=== PATIENT | female | born 1960 | race African-American/Black ===

== ENCOUNTER 2018-12-10 00:20 | Emergency (ER) | payer OTHER ==
--- NOTE | 2018-12-10 00:39 | PDOC ---
History of Present Illness - General Chief Complaint: Weakness Stated Complaint: LEFT HAND NUMBNESS Time Seen by Provider: 12/10/18 00:38 Past History - Past Medical History Allergies/Adverse Reactions: Allergies Allergy/AdvReac Type Severity Reaction Status Date / Time No Known Allergies Allergy Verified 12/10/18 00:41 Home Medications: Ambulatory Orders Aspirin Coated [Ecotrin -] 81 mg PO DAILY #90 tablet.ec 02/29/16 Anemia: No Asthma: No Cancer: No Cardiac Disorders: No CVA: Yes (TIA) COPD: No CHF: No Dementia: No Diabetes: No GI Disorders: No Disorders: No HTN: No Hypercholesterolemia: Yes Liver Disease: No Seizures: No Thyroid Disease: Yes (HyperThyroid) - Surgical History Abdominal Surgery: No Appendectomy: No Cardiac Surgery: No Cholecystectomy: No Lung Surgery: No Neurologic Surgery: No Orthopedic Surgery: Yes (ankle) - Immunization History Td Vaccination: No - Psycho Social/Smoking Cessation Hx Smoking Status: No Smoking History: Never smoked Number of Cigarettes Smoked Daily: 0 Hx Alcohol Use: Yes Drug/Substance Use Hx: No Substance Use Type: None Hx Substance Use Treatment: No ED Treatment Course - LABORATORY CBC & Chemistry Diagram: 12/10/18 01:10 12/10/18 01:10 Discharge - Discharge Information Problems reviewed: Yes Clinical Impression/Diagnosis: Arm paresthesia, left Condition: Good Disposition: HOME - Admission No - Follow up/Referral Referrals: [facility] [Provider Group] - Patient Discharge Instructions Patient Printed Discharge Instructions: DI for Numbness/tingling Additional Instructions: You were seen in the ER today for tingling in your arm. The results of your labs and imaging today showed mild electrolyte abnormalities that need to be followed-up with your doctor. Please follow-up with your primary care doctor within 1-2 days to discuss your visit and make sure your symptoms have improved. Please return to the ER if you have any worsening pain, development of fevers or chills, loss of consciousness, inability to tolerate food or fluids , or any other concerns. - Post Discharge Activity
--- NOTE | 2018-12-10 00:40 | PDOC ---
Attending Attestation - Resident Resident Name: TashaEmy - ED Attending Attestation I have performed the following: I have examined & evaluated the patient, The case was reviewed & discussed with the resident, I agree w/resident's findings & plan - HPI HPI: 12/11/18 22:54 Pt comes with left hard tingling and numbness. Pt states that she has no other weakness or pain. - Physicial Exam PE: 12/11/18 22:55 Agree with resident exam. Pt has normal rest of body; she has no weakness of left arm at this time. But she feels pins and needles. We will check CT c spine and treat with NSAIDS. - Medical Decision Making 12/11/18 22:56 maging studies normal; pt reassured and she is feeling better; she will follow with her PMD. 12/11/18 22:56 All labs normal. 12/11/18 22:57 Pt stable for d/c home; she can follow with her PMD.
[2018-12-10 00:42] VITALS: TEMP 98.2; BMI 23.6
[2018-12-10] MEDS ORDERED: KETOROLAC TROMETHAMINE 30 MG/1 ML VIAL IVPUSH ONE (01:11)
[2018-12-10] MEDS ORDERED: METHOCARBAMOL 500 MG TABLET PO ONE (01:12)
[2018-12-10 01:26] LABS: BASO % 0.8 % (0-2.0); EOS % 3.7 % (0-4.5); HEMATOCRIT 35.4 % (32.4-45.2); HEMOGLOBIN 11.4 GM/dL (10.7-15.3); LYMPH % 51.3 % (8-40); MCH 28.4 pg (25.7-33.7); MCHC 32.2 g/dl (32.0-36.0); MEAN CELL VOLUME 88.3 fl (80-96); MEAN PLT VOLUME 9.1 fl (7.5-11.1); MONO % 9.1 % (3.8-10.2); NEUT % 35.1 % (42.8-82.8); PLATELET COUNT 227 K/MM3 (134-434); RBC 4.01 M/mm3 (3.60-5.2); RDW 13.6 % (11.6-15.6); WHITE BLOOD COUNT 3.9 K/mm3 (4.0-10.0)
[2018-12-10] MEDS ORDERED: KETOROLAC TROMETHAMINE 15 MG/ML VIAL IM ONE (01:33)
[2018-12-10] MEDS ORDERED: KETOROLAC TROMETHAMINE 15 MG/ML VIAL ONE (01:36)
[2018-12-10] MEDS ORDERED: METHOCARBAMOL 500 MG TABLET ONE (01:36)
[2018-12-10] MEDS ORDERED: IBUPROFEN 600 MG TABLET (FP) PO ONE ×2 (01:44→02:00)
[2018-12-10 01:52] LABS: ALBUMIN 3.5 g/dl (3.4-5.0); BILIRUBIN,TOTAL 0.5 mg/dL (0.2-1); BLOOD UREA NITROGEN 15.4 mg/dL (7-18); CALCIUM 8.5 mg/dL (8.5-10.1); CREATININE 0.7 mg/dL (0.55-1.3); POTASSIUM 3.8 mmol/L (3.5-5.1); TOT PROT 6.8 g/dl (6.4-8.2)
[2018-12-10 02:00] LABS: MAGNESIUM 1.6 mg/dL (1.8-2.4)
[2018-12-10 02:47] VITALS: BP 120/83; PULSE 81
== END 2018-12-10 02:30 | disposition home or self-care (01) ==
LOC: JER 00:20
DX: R20.2 Paresthesia of skin (principal); E05.90 Thyrotoxicosis, unspecified without thyrotoxic crisis or storm; E78.00 Pure hypercholesterolemia, unspecified; Z86.73 Personal history of transient ischemic attack (TIA), and cerebral infarction without residual deficits
CPT/HCPCS: 36415; 72050-TC-FY; 80053; 80061; 83721; 83735; 84443; 85025; 99282-25

== ENCOUNTER 2019-10-02 21:57 | Observation (INO) | payer OTHER ==
[2019-10-02 22:06] VITALS: BMI 22.8
[2019-10-02] MEDS ORDERED: ASPIRIN 81 MG CHEWABLE TABLETS PO ONE (22:09)
--- NOTE | 2019-10-02 22:09 | PDOC ---
Rapid Medical Evaluation Chief Complaint: Chest Pain Time Seen by Provider: 10/02/19 22:03 Medical Evaluation: Allergies Allergy/AdvReac Type Severity Reaction Status Date / Time No Known Allergies Allergy Verified 12/10/18 00:41 Vital Signs Temp Pulse Resp BP Pulse Ox 98.7 F 74 19 146/86 100 10/02/19 21:59 10/02/19 21:59 10/02/19 21:59 10/02/19 21:59 10/02/19 21:59 10/02/19 22:07 I performed a brief in-person evaluation of this patient. CC: left-sided chest pain starting approximately 45 minutes ago. Patient reports it is a dull pressure which waxes and wanes. Lungs clear to auscultation bilaterally. RRR. No murmur, rub or gallop noted. PE: Orders: Cardiac work-up Patient will proceed to the ED for further evaluation. Discharge Disposition - Diagnosis Chest pain - Referrals - Patient Instructions - Post Discharge Activity
--- NOTE | 2019-10-02 22:18 | PDOC ---
History of Present Illness - General Chief Complaint: Chest Pain Stated Complaint: CHEST PAIN Time Seen by Provider: 10/02/19 22:03 - History of Present Illness Initial Comments: 59 years old female with past medical history of Hypothyroidism, hyperlipidemia, and TIA (on for 81 mg aspirins) every day coming here to the ED with one hour of sudden chest pain. Patient was on a zoom call and had sudden chest pain localized around the sternum area, no radiating, with a dull sensation feeling. Denies nausea, vomiting ,diaphoresis, SOB, abdominal pain ,dizziness, change of vision. She took 2 baby aspirin no relief. Positional changes didn't take away the dull chest pain. Nothing make it better. PMHX: as in HPI PSHX: Meds: aspirin 81 Allergies: none Tob: none Etoh: none Rec drugs: none PCP: yes, but don't know the name. ROS GENERAL/CONSTITUTIONAL: No fever or chills. No weakness. HEAD, EYES, EARS, NOSE AND THROAT: No change in vision. No ear pain or discharge. No sore throat. CARDIOVASCULAR: +chest pain , no shortness of breath RESPIRATORY: No cough, wheezing, or hemoptysis. GASTROINTESTINAL: No nausea, vomiting, diarrhea or constipation. GENITOURINARY: No dysuria, frequency, or change in urination. MUSCULOSKELETAL: No joint or muscle swelling or pain. No neck or back pain. SKIN: No rash NEUROLOGIC: No headache, vertigo, loss of consciousness, or change in strength/sensation. ENDOCRINE: No increased thirst. No abnormal weight change HEMATOLOGIC/LYMPHATIC: No anemia, easy bleeding, or history of blood clots. ALLERGIC/IMMUNOLOGIC: No hives or skin allergy. PE GENERAL: Awake, alert, and fully oriented, in no acute distress HEAD: No signs of trauma, normocephalic, atraumatic EYES: PERRLA, EOMI, sclera anicteric, conjunctiva clear ENT: Auricles normal inspection, hearing grossly normal, nares patent, oropharynx clear without exudates. Moist mucosa NECK: Normal ROM, supple, no lymphadenopathy, JVD, or masses LUNGS: No distress, speaks full sentences, clear to auscultation bilaterally HEART: Regular rate and rhythm, normal S1 and S2, no murmurs, rubs or gallops, peripheral pulses normal and equal bilaterally. no reproducible pain midstum. ABDOMEN: Soft, nontender, normoactive bowel sounds. No guarding, no rebound. No masses EXTREMITIES : Normal inspection, Normal range of motion, no edema. No clubbing or cyanosis. NEUROLOGICAL: Cranial nerves II through XII grossly intact. Normal speech, normal gait, no focal sensorimotor deficits SKIN: Warm, Dry, normal turgor, no rashes or lesions noted 10/03/19 00:54 Past History - Medical History Allergies/Adverse Reactions: Allergies Allergy/AdvReac Type Severity Reaction Status Date / Time No Known Allergies Allergy Verified 12/10/18 00:41 Home Medications: Ambulatory Orders Aspirin Coated [Ecotrin -] 81 mg PO DAILY #90 tablet.ec 02/29/16 Anemia: No Asthma: No Cancer: No Cardiac Disorders: No CVA: Yes (TIA) COPD: No CHF: No Dementia: No Diabetes: No GI Disorders: No Disorders: No HTN: No Hypercholesterolemia: Yes Liver Disease: No Seizures: No Thyroid Disease: Yes (HyperThyroid) - Surgical History Abdominal Surgery: No Appendectomy: No Cardiac Surgery: No Cholecystectomy: No Lung Surgery: No Neurologic Surgery: No Orthopedic Surgery: Yes (ankle) - Immunization History Td Vaccination: No Immunization Up to Date: No - Psycho-Social/Smoking History Smoking Status: No Smoking History: Never smoked Number of Cigarettes Smoked Daily: 0 - Substance Abuse Hx (Audit-C & DAST Scrn) How often the patient has a drink containing alcohol: Never Score: In Men: 4 or > Positive; In Women: 3 or > Positive: 0 Screen Result (Pos requires Nsg. Audit-10AR): Negative In the last yr the pt used illegal drug/Rx for NonMed reason: No Score: Yes response is considered Positive: 0 Screen Result (Positive result requires Nsg. DAST-10): Negative *Physical Exam - Vital Signs Last Vital Signs Temp Pulse Resp BP Pulse Ox 98.7 F 74 19 146/86 100 10/02/19 21:59 10/02/19 21:59 10/02/19 21:59 10/02/19 21:59 10/02/19 21:59 ED Treatment Course - LABORATORY CBC & Chemistry Diagram: 10/02/19 23:43 10/02/19 23:43 Medical Decision Making - Medical Decision Making 59 10/03/19 05:45 59 years old female with past medical history of Hypothyroidism, hyperlipidemia, and TIA (on for 81 mg aspirins) every day coming here to the ED with one hour of sudden chest pain. Concerning for ACS. Lab: CBC, CMP, trop. EKG: showed normal sinus rhym, reg rate, no ST changes suggesting ischemic. Chest xray show no filtrate. CBC, CMP, trop are negative. Will admit patient for telemetry observation. Admit under Dr. Leonard. Discharge - Discharge Information Problems reviewed: Yes Clinical Impression/Diagnosis: Chest pain Condition: Stable - Admission Yes - Follow up/Referral - Patient Discharge Instructions - Post Discharge Activity
[2019-10-02] MEDS ORDERED: ASPIRIN 81 MG CHEWABLE TABLETS ONE (22:37)
[2019-10-02] MEDS ORDERED: ACETAMINOPHEN 325 MG TABLET (FP) PO ONE (22:57)
[2019-10-02] MEDS ORDERED: ACETAMINOPHEN 325 MG TABLET (FP) ONE (23:24)
--- NOTE | 2019-10-02 23:33 | PDOC ---
Attending Attestation - Resident Resident Name: Cisco Charles - ED Attending Attestation I have performed the following: I have examined & evaluated the patient, The case was reviewed & discussed with the resident, I agree w/resident's findings & plan - HPI HPI: 10/02/19 23:31 59 years old female with past medical history of hypothyroid, hyperlipidemia, and TIA (on for 81 mg aspirin) every day coming here to the ED with one hour of sudden chest pain. Patient was on a zoom call and had sudden chest pain localized around the sternum area, no radiating, with a dull sensation feeling. Denies nausea, vomiting ,diaphoresis, SOB, abdominal pain ,dizziness, change of vision. She took 2 baby aspirin no relief. Positional changes didn't take away the dull chest pain. denies alleviating or exacerbating factors had prior admission for TIA in 2017, atypical cp and normal echo at that time. 10/03/19 00:56 10/03/19 00:57 - Physicial Exam PE: 10/02/19 23:31 Agree with the resident's HPI and PE as documented in the electronic medical record. NAD, well appearing, EOMI, PERRL, nl conjunctiva, anicteric; neck supple. lungs clear, RRR, no murmur, abdomen soft nontender. no rebound, guarding. Back no ntender. GOOD x4, no focal neuro deficits. No peripheral edema. normal color for ethnicity, WWP. 10/03/19 00:34 - Medical Decision Making 10/02/19 23:32 Vital Signs Temp Pulse Resp BP Pulse Ox 98.7 F 74 19 146/86 100 10/02/19 21:59 10/02/19 21:59 10/02/19 21:59 10/02/19 21:59 10/02/19 21:59 vitals reviewed, mildly hypertensive afebrile no respiratory distress DDx chest pain: ACS, coronary vasospasm, NSTEMI, arrhythmia, unstable angina, PE, dissection, PUD, esophageal spasm, GERD, gastritis, costochondritis, pneumonia, pleurisy, pericarditis/myocarditis. dehydration, electrolyte/metabolic derangements. Considered but clinically doubt based on HPI and PE: Low suspicion for pulmonary embolism or dissection. Interpreted by ED Physician: CXR (2 view): no acute abnormality: no infiltrates, bones appear intact and structures normal alignment, cardiac silhouette within normal limits. no free air under diaphragm, no pneumothorax. EKG normal sinus rhythm, no interval abnormalities, narrow QRS, ST and T wave segments and morphology normal. Nonspecific T wave abnormalities, unchanged from prior Chest pain HEART score 2 which denotes Low risk and probability for ACS, less than 1.7% risk for MACE at 4-6 wks however her symptoms sound typical, needs r/o ACS Plan for admit observation tele for chest pain eval, r/o ischemia, serial trops and EKG/tele monitoring. ASA administered, pain controlled, discussion with patient and family at bedside, made aware of impression and plan, questions answered. 10/03/19 00:57 10/03/19 00:58 Heart Score/ECG Review - History History: Slightly suspicious - Electrocardiogram EKG: Normal - Age Age: 45-65 - Risk Factors Risk Factors Heart Score: Yes Hx Hypercholesterolemia Based on the list above the patient has:: 1-2 risk factors - Troponin Troponin: </= normal limit - Score Heart Score - Total: 2 #1 ECG reviewed & interpreted by me at: 22:00 General ECG Interpretation: Sinus Rhythm, Normal Rate, Normal Intervals Compared to previous ECG there are: No significant change 10/02/19 23:32 EKG normal sinus rhythm 70 bpm, no interval abnormalities, narrow QRS, ST and T wave segments and morphology normal. Discharge - Discharge Information Problems reviewed: Yes Clinical Impression/Diagnosis: Chest pain Condition: Stable - Follow up/Referral - Patient Discharge Instructions - Post Discharge Activity
[2019-10-03 00:40] LABS: BASO % 1.5 % (0-2.0); EOS % 3.9 % (0-4.5); HEMATOCRIT 35.1 % (32.4-45.2); HEMOGLOBIN 11.4 GM/dL (10.7-15.3); LYMPH % 44.7 % (8-40); MCH 28.1 pg (25.7-33.7); MCHC 32.4 g/dl (32.0-36.0); MEAN CELL VOLUME 86.8 fl (80-96); MEAN PLT VOLUME 10.8 fl (7.5-11.1); NEUT % 41.9 % (42.8-82.8); PLATELET COUNT 224 K/MM3 (134-434); RBC 4.05 M/mm3 (3.60-5.2); RDW 13.9 % (11.6-15.6); WHITE BLOOD COUNT 4.4 K/mm3 (4.0-10.0)
[2019-10-03 00:53] LABS: INR 0.83 (0.83-1.09); PROTHROMBIN TIME (PATIENT) 9.8 SEC (9.7-13.0)
[2019-10-03 00:56] LABS: ACTIVATED PTT 19.8 SECONDS (25.2-36.5)
[2019-10-03 01:05] LABS: ALBUMIN 3.5 g/dl (3.4-5.0); ALK PHOS 97 U/L (45-117); ANION GAP 3 MMOL/L (8-16); BILIRUBIN,TOTAL 0.7 mg/dL (0.2-1); BLOOD UREA NITROGEN 23.7 mg/dL (7-18); CALCIUM 9.1 mg/dL (8.5-10.1); CHLORIDE 108 mmol/L (98-107); CO2 30 mmol/L (21-32); CREATININE 0.7 mg/dL (0.55-1.3); GLUCOSE,RANDOM 109 mg/dL (74-106); MAGNESIUM 2.3 mg/dL (1.8-2.4); POTASSIUM 4.6 mmol/L (3.5-5.1); SGOT/AST 33 U/L (15-37); SGPT/ALT 23 U/L (13-61); SODIUM 140 mmol/L (136-145); TOT PROT 7.1 g/dl (6.4-8.2)
--- NOTE | 2019-10-03 02:34 | HP ---
CHIEF COMPLAINT:" I developed chest pain at rest which started at 9pm while I was resting. " PCP:yes, does not know his name HISTORY OF PRESENT ILLNESS: 59 year old female with a past medical history significant for hypothyroidism, hyperlipidemia, TIA and positive cardiac family history who presented with a sudden onset of on/off sternal chest pain which started around 9pm and lasted for about 1 hour. She reports she was on a zoom call and then was resting in bed where she had a sudden of chest pain localized around the sternum area which was not radiating described as a dull sensation and lasted about 1 hour. She denied nausea, vomiting ,diaphoresis, SOB, abdominal pain ,dizziness, change of vision. She reports chest pain did not improve on positional changes and was reproducible to palpation. She reports she took 2 baby aspirin and she had no relief.She reports she is active and runs 6 miles a day and develops no chest discomfort. Currently she has no active chest pain. ER course notable for: chest x ray normal EKG- normal sinus rhythm, 70bpm, Qtc interval 436 m/s,no acute st changes or t wave inversions or no bundle first troponin normal labs unremarkable blood pressure 146/86, no tachycardia or hypoxia Recent Travel: denies PAST MEDICAL HISTORY: hypothyroidism hyperlipidemia TIA (2017) PAST SURGICAL HISTORY: denies Social History: Smoking:no Alcohol:no Drugs: no Family History: Mother has cardiac stent. Father had diabetes mellitus, stroke, at age 55. Allergies No Known Allergies Allergy (Verified 12/10/18 00:41) HOME MEDICATIONS: Home Medications Medication Instructions Recorded Aspirin Coated [Ecotrin -] 81 mg PO DAILY #90 tablet.ec 02/29/16 REVIEW OF SYSTEMS CONSTITUTIONAL: Absent: fever, chills, diaphoresis, generalized weakness, malaise, loss of appetite, weight change HEENT: Absent: rhinorrhea, nasal congestion, throat pain, throat swelling, difficulty swallowing, mouth swelling, ear pain, eye pain, visual changes CARDIOVASCULAR: Absent: chest pain, syncope, palpitations, irregular heart rate, lightheadedness, peripheral edema RESPIRATORY: Absent: cough, shortness of breath, dyspnea with exertion, orthopnea, wheezing, stridor, hemoptysis GASTROINTESTINAL: Absent: abdominal pain, abdominal distension, nausea, vomiting, diarrhea, constipation, melena, hematochezia GENITOURINARY: Absent: dysuria, frequency, urgency, hesitancy, hematuria, flank pain, genital pain MUSCULOSKELETAL: Absent: myalgia, arthralgia, joint swelling, back pain, neck pain SKIN: Absent: rash, itching, pallor HEMATOLOGIC/IMMUNOLOGIC: Absent: easy bleeding, easy bruising, lymphadenopathy, frequent infections ENDOCRINE: Absent: unexplained weight gain, unexplained weight loss, heat intolerance, cold intolerance NEUROLOGIC: Absent: headache, focal weakness or paresthesias, dizziness, unsteady gait, seizure, mental status changes, bladder or bowel incontinence PSYCHIATRIC: Absent: anxiety, depression, suicidal or homicidal ideation, hallucinations. PHYSICAL EXAMINATION Vital Signs - 24 hr 10/02/19 10/02/19 21:59 22:25 Temperature 98.7 F Pulse Rate 74 66 Respiratory 19 Rate Blood Pressure 146/86 O2 Sat by Pulse 100 99 Oximetry (%) General no acute distress Vital signs reviewed afebrile Neuro no focal deficits Neck no JVD Lungs CTA nonlabored breathing effort no rales no wheezing Heart s1s2 rate regular Abdomen soft nontender nondistended Extremities warm to touch no pitting edema no cyanosis Skin nail beds and lips pink Mood calm Laboratory Results - last 24 hr 10/02/19 10/02/19 10/02/19 23:43 23:43 23:43 WBC 4.4 RBC 4.05 Hgb 11.4 Hct 35.1 MCV 86.8 MCH 28.1 MCHC 32.4 RDW 13.9 Plt Count 224 MPV 10.8 D Absolute Neuts (auto) 1.8 Neutrophils % 41.9 L Lymphocytes % 44.7 H Monocytes % 8.0 Eosinophils % 3.9 Basophils % 1.5 Nucleated RBC % 0 PT with INR 9.80 INR 0.83 PTT (Actin FS) 19.8 L Sodium 140 Potassium 4.6 Chloride 108 H Carbon Dioxide 30 Anion Gap 3 L BUN 23.7 H Creatinine 0.7 Est GFR (CKD-EPI)AfAm 110.69 Est GFR (CKD-EPI)NonAf 95.50 Random Glucose 109 H Calcium 9.1 Magnesium 2.3 Total Bilirubin 0.7 AST 33 ALT 23 Alkaline Phosphatase 97 Creatine Kinase 183 Creatine Kinase Index 1.2 CK-MB (CK-2) 2.2 Troponin I < 0.02 Total Protein 7.1 Albumin 3.5 ASSESSMENT/PLAN: In summary this is a 59 year old female with a past medical history significant for hypothyroidism, hyperlipidemia, TIA and positive cardiac family history who presented with a sudden onset of on/off sternal chest pain which started around 9pm and lasted for about 1 hour and with no associated symptoms. Chest pain was reproducible. Currently she is without any chest discomfort. She is being admitted to tele/obs for further cardiac evaluation and to rule out ACS. 1. Chest Pain appears atypical, risk factors, HLD, has + cardiac family history chest x ray normal SBP 140's EKG w/normal sinus rhythm, 70bpm, Qtc interval 436 m/s,no acute st changes or t wave inversions and no bundle first troponin normal low suspicion for PE as has no tachycardia or hypoxia, active liefstyle and no recent travel D-Dimer 365 continue to trend troponins c/w asa therapy will add statin with hx of HLD and TIA Cardiology consulted- Dr. Julio repeat EKG in am will keep NPO in anticipation of stress test if indicated by Cardiology consider echo to evaluate EF and exclude WMA and will defer to Cardiology 2. Hyperlipidemia not on statin therapy check fasting lipid panel atorvastatin 20 mg added, has hx TIA 3. Hypothyroidism not on meds check TSH 4. Hx TIA c/w baby asa statin added 5. Rule Out COVID (low suspicion) follow up on COVID swab sent 10/02 maintain strict isolation precautions for droplet and contact maintain 02 sat >90% DVT Prophylaxis low risk SCD's FEN no IVF indicated BMP daily NPO in anticipation of stress test if indicated by Cardiology Visit type - Emergency Visit Emergency Visit: Yes ED Registration Date: 10/03/19 Care time: The patient presented to the Emergency Department on the above date and was hospitalized for further evaluation of their emergent condition. - New Patient This patient is new to me today: Yes Date on this admission: 10/03/19 - Critical Care Critical Care patient: No
--- NOTE | 2019-10-03 09:56 | CON.CARD ---
Consult Consult Specialty:: cardiology Reason for Consultation:: chest pain - History of Present Illness Chief Complaint: Pt A&OX3; no chest pain or dyspnea. History of Present Illness: Ms Goldstein is a 59 yr old black woman (b. [place]) with PMHx HTN, ? DM, TIA; pt says she is on no medications, now admitted for sudden moderately severe left anterior chest wall and left breast pain (dull ache; later burning that did not go away after belching) that began when she was on the phone with her daughter; it lasted for at least 30 minutes. Pt walks 6-7 miles a day, 7 days a week, all year-round. She does not have chest pain or dyspnea with exertion. Father: CVA age 50; DM. - History Source History Provided By: Patient, Medical Record Limitations to Obtaining History: No Limitations - Past Medical History INSTRUMENT TESTER: Yes: TIA Cardio/Vascular: Yes: HTN, Hyperlipdemia Pulmonary: Yes: Asthma (childhood; no events since teenager) Reproductive: Yes: Postmenopausal ...LMP: 01/21/15 ...: No - Past Surgical History Past Surgical History: Yes: None - Alcohol/Substance Use Hx Alcohol Use: Yes - Smoking History Smoking history: Never smoked Aproximately how many cigarettes per day: 0 Home Medications - Allergies Allergies/Adverse Reactions: Allergies Allergy/AdvReac Type Severity Reaction Status Date / Time No Known Allergies Allergy Verified 12/10/18 00:41 - Home Medications Home Medications: Ambulatory Orders Aspirin Coated [Ecotrin -] 81 mg PO DAILY #90 tablet.ec 02/29/16 Family Medical History Family Hx Diabetes: Father Family Hx Nuerologic Problems: Father (CVA age 50) Review of Systems - Review of Systems Constitutional: reports: No Symptoms Eyes: reports: No Symptoms HENT: reports: No Symptoms Neck: reports: No Symptoms Cardiovascular: reports: Chest Pain Respiratory: reports: No Symptoms Gastrointestinal: reports: No Symptoms Genitourinary: reports: No Symptoms Breasts: reports: No Symptoms Reported Musculoskeletal: reports: No Symptoms Integumentary: reports: No Symptoms Neurological: reports: No Symptoms Endocrine: reports: No Symptoms Hematology/Lymphatic: reports: No Symptoms Psychiatric: reports: No Symptoms - Risk Factors Known Risk Factors: Yes: Age, Family History (CVA), Hypercholesterolemia, Hypertension, Race, Other (TIA) Vital Signs: Vital Signs Temperature 98.4 F 10/03/19 07:14 Pulse Rate 62 10/03/19 07:14 Respiratory Rate 18 10/03/19 07:14 Blood Pressure 132/78 10/03/19 07:14 O2 Sat by Pulse Oximetry (%) 100 10/03/19 07:14 Constitutional: Yes: Calm Eyes: Yes: WNL HENT: Yes: WNL Neck: Yes: WNL Respiratory: Yes: WNL Gastrointestinal: Yes: WNL Renal/: Yes: WNL Cardiovascular: Yes: WNL JVD: No Carotid Bruit: No PMI: Non-Displaced Heart Sounds: Yes: S1, S2, S4 Musculoskeletal: Yes: WNL Extremities: Yes: WNL Edema: No Peripheral Pulses WNL: Yes Integumentary: Yes: WNL Neurological: Yes: WNL ...Motor Strength: WNL Psychiatric: Yes: WNL - Other Data Labs, Other Data: CBC, BMP 10/02/19 23:43 10/02/19 23:43 INR, PTT INR 0.83 (0.83-1.09) 10/02/19 23:43 Troponin, BNP 10/02/19 10/03/19 23:43 05:13 Troponin I < 0.02 < 0.02 Troponin, BNP 10/02/19 10/03/19 23:43 05:13 Troponin I < 0.02 < 0.02 Abnormal Lab Results 10/02/19 10/02/19 10/02/19 23:43 23:43 23:43 Neutrophils % 41.9 L Lymphocytes % 44.7 H PTT (Actin FS) 19.8 L Chloride 108 H Anion Gap 3 L BUN 23.7 H Random Glucose 109 H Cholesterol Total LDL Cholesterol HDL Cholesterol 10/03/19 05:13 Neutrophils % Lymphocytes % PTT (Actin FS) Chloride Anion Gap BUN Random Glucose Cholesterol 202 H Total LDL Cholesterol 103 H HDL Cholesterol 83 H Echo: Pending Imaging - Results Chest X-ray: Image Reviewed EKG: Image Reviewed Assessment/Plan Atypical chest pain On no medications Hx TIA post-menopausal Father: CVA age 50 Elevated BP in ER Elevated glucose--nonfasting Elevated LDL cholesterol Hx enlarged thyroid; needle biopsy done 2018: results? Plan: COVID pending; stress test when able to do so. Aggressive control of lipids (keep LDL cholesterol < 70 mg/dL). Serial BP checks. Serial EKGs; telemetry. HGBA1c. F/u prior neuro workup. F/u thyroid
[2019-10-03] MEDS: ASPIRIN COATED 81 MG TABLET.EC PO SCH (10:16)
[2019-10-03 10:45] LABS: ALBUMIN 3.6 g/dl (3.4-5.0); BILIRUBIN,TOTAL 0.8 mg/dL (0.2-1); BLOOD UREA NITROGEN 18.4 mg/dL (7-18); CALCIUM 9.1 mg/dL (8.5-10.1); CREATININE 0.7 mg/dL (0.55-1.3); MAGNESIUM 2.4 mg/dL (1.8-2.4); PHOSPHOROUS 4.6 mg/dL (2.5-4.9); POTASSIUM 4.5 mmol/L (3.5-5.1); TOT PROT 7.1 g/dl (6.4-8.2)
--- NOTE | 2019-10-03 11:29 | EKG ---
Test Reason : Blood Pressure : / mmHG Vent. Rate : 070 BPM Atrial Rate : 070 BPM P-R Int : 194 ms QRS Dur : 086 ms QT Int : 404 ms P-R-T Axes : 059 026 052 degrees QTc Int : 436 ms NORMAL SINUS RHYTHM POSSIBLE LEFT ATRIAL ENLARGEMENT BORDERLINE ECG NO PREVIOUS ECGS AVAILABLE Confirmed by FINN MCDERMOTT, NICOLE ([id number]) on 10/03/2019 11:28:41 AM Referred By: Confirmed By:NICOLE BRISENO MD
[2019-10-03 12:25] LABS: BASO % 1.4 % (0-2.0); EOS % 3.2 % (0-4.5); HEMATOCRIT 39.6 % (32.4-45.2); HEMOGLOBIN 12.4 GM/dL (10.7-15.3); LYMPH % 46.2 % (8-40); MCH 27.2 pg (25.7-33.7); MCHC 31.4 g/dl (32.0-36.0); MEAN CELL VOLUME 86.7 fl (80-96); MONO % 7.5 % (3.8-10.2); NEUT % 41.7 % (42.8-82.8); PLATELET COUNT 217 K/MM3 (134-434); RBC 4.57 M/mm3 (3.60-5.2); RDW 13.9 % (11.6-15.6); WHITE BLOOD COUNT 3.9 K/mm3 (4.0-10.0)
--- NOTE | 2019-10-03 16:18 | PN ---
Physical Exam: SUBJECTIVE: Patient seen and examined in the ED. In no acute distress. Denies chest pain. Denies SOB, headache, and weakness. OBJECTIVE: Vital Signs 10/03/19 07:14 Temperature 98.4 F Pulse Rate Pulse Rate [ 62 Apical] Respiratory 18 Rate Blood Pressure Blood Pressure 132/78 [Right Arm] O2 Sat by Pulse 100 Oximetry (%) GENERAL: The patient is awake, alert, and fully oriented, in no acute distress. HEAD: Normal with no signs of trauma. No facial droop or weakness noted. EYES: PERRL, extraocular movements intact, sclera anicteric, conjunctiva clear. No ptosis. ENT: moist mucous membranes. Tongue midline LUNGS: Breath sounds equal, clear to auscultation bilaterally HEART: Regular rate and rhythm, S1, S2 ABDOMEN: Soft, nontender, nondistended, normoactive bowel sounds. Chest pain partially reproducible to palpation. EXTREMITIES: pulses, warm, well-perfused, no edema. NEUROLOGICAL: Cranial nerves II through XII grossly intact. Normal speech, gait not observed. SKIN: Warm, dry, normal turgor, no rashes or lesions noted Laboratory Results - last 24 hr 10/02/19 10/02/19 10/02/19 23:43 23:43 23:43 WBC 4.4 RBC 4.05 Hgb 11.4 Hct 35.1 MCV 86.8 MCH 28.1 MCHC 32.4 RDW 13.9 Plt Count 224 MPV 10.8 D Absolute Neuts (auto) 1.8 Neutrophils % 41.9 L Lymphocytes % 44.7 H Monocytes % 8.0 Eosinophils % 3.9 Basophils % 1.5 Nucleated RBC % 0 PT with INR 9.80 INR 0.83 PTT (Actin FS) 19.8 L D-Dimer Sodium 140 Potassium 4.6 Chloride 108 H Carbon Dioxide 30 Anion Gap 3 L BUN 23.7 H Creatinine 0.7 Est GFR (CKD-EPI)AfAm 110.69 Est GFR (CKD-EPI)NonAf 95.50 Random Glucose 109 H Hemoglobin A1c % Calcium 9.1 Phosphorus Magnesium 2.3 Total Bilirubin 0.7 AST 33 ALT 23 Alkaline Phosphatase 97 Creatine Kinase 183 Creatine Kinase Index 1.2 CK-MB (CK-2) 2.2 Troponin I < 0.02 Total Protein 7.1 Albumin 3.5 Triglycerides Cholesterol Total LDL Cholesterol HDL Cholesterol TSH 10/03/19 10/03/19 10/03/19 03:00 05:13 05:13 WBC RBC Hgb Hct MCV MCH MCHC RDW Plt Count MPV Absolute Neuts (auto) Neutrophils % Lymphocytes % Monocytes % Eosinophils % Basophils % Nucleated RBC % PT with INR INR PTT (Actin FS) D-Dimer 315 Sodium 143 Potassium 4.5 Chloride 109 H Carbon Dioxide 23 Anion Gap 11 BUN 18.4 H Creatinine 0.7 Est GFR (CKD-EPI)AfAm 110.69 Est GFR (CKD-EPI)NonAf 95.50 Random Glucose 101 Hemoglobin A1c % Calcium 9.1 Phosphorus 4.6 Magnesium 2.4 Total Bilirubin 0.8 AST 18 ALT 23 Alkaline Phosphatase 89 Creatine Kinase Creatine Kinase Index CK-MB (CK-2) Troponin I < 0.02 Total Protein 7.1 Albumin 3.6 Triglycerides 35 Cholesterol 202 H Total LDL Cholesterol 103 H HDL Cholesterol 83 H TSH 1.84 10/03/19 10/03/19 10/03/19 08:00 10:00 12:12 WBC 3.9 L RBC 4.57 Hgb 12.4 Hct 39.6 MCV 86.7 MCH 27.2 MCHC 31.4 L RDW 13.9 Plt Count 217 MPV 9.0 D Absolute Neuts (auto) 1.6 Neutrophils % 41.7 L Lymphocytes % 46.2 H Monocytes % 7.5 Eosinophils % 3.2 Basophils % 1.4 Nucleated RBC % 0 PT with INR INR PTT (Actin FS) D-Dimer Sodium Potassium Chloride Carbon Dioxide Anion Gap BUN Creatinine Est GFR (CKD-EPI)AfAm Est GFR (CKD-EPI)NonAf Random Glucose Hemoglobin A1c % 6.3 Calcium Phosphorus Magnesium Total Bilirubin AST ALT Alkaline Phosphatase Creatine Kinase Creatine Kinase Index CK-MB (CK-2) Troponin I < 0.02 Total Protein Albumin Triglycerides Cholesterol Total LDL Cholesterol HDL Cholesterol TSH Active Medications Generic Name Dose Route Start Last Admin Trade Name Freq PRN Reason Stop Dose Admin Aspirin 81 mg 10/03/19 10:00 10/03/19 10:16 Ecotrin - PO 81 mg DAILY [facility] Administration Atorvastatin Calcium 20 mg 10/03/19 22:00 Lipitor - PO HS [facility] ASSESSMENT/PLAN: In summary this is a 59 year old female with a past medical history significant for hypothyroidism, TIA (Father had CVA age 50) who presented with a sudden onset of on/off sternal chest pain which started around 9pm and lasted for about 1 hour and with no associated symptoms. She also has had increase SOB with climbing stairs over the last few weeks. She is being admitted to tele/obs for further cardiac evaluation and to rule out ACS. Chest Pain: 2/2 CVD vs ACS vs GERD - EKG NSR, 70bpm, Qtc interval 436 m/s - all trops WNL - continue ASA 81 - Cardiology consulted (Dr. Beckman) treadmill stress test pending covid Aggressive control of lipids (keep LDL cholesterol < 70 mg/dL) Serial BP checks repeat EKG in am Consider echo to evaluate EF and exclude WMA and will defer to Cardiology - If symptoms consistent with GERD consider PPI Hyperlipidemia - Was not on statin therapy - atorvastatin 20 mg - goal LDL < 70 (LDL currently 103) - good LDL:HDL ratio Hypothyroidism - not on meds - TSH WNL Hx TIA - Continue ASA 81 daily Pre-Diabetes - HbA1C 6.3 - will discuss with patient and provide education before discharge DVT Prophylaxis - low risk - SCD's FEN - no IVF indicated - BMP daily - NPO after midnight for possible stress test Visit type - Emergency Visit Emergency Visit: Yes ED Registration Date: 10/03/19 Care time: The patient presented to the Emergency Department on the above date and was hospitalized for further evaluation of their emergent condition. - New Patient This patient is new to me today: Yes Date on this admission: 10/03/19 - Critical Care Critical Care patient: No - Discharge Referral Referred to [facility] Med P.C.: No ATTENDING PHYSICIAN STATEMENT I saw and evaluated the patient. I reviewed the resident's note and discussed the case with the resident. I agree with the resident's findings and plan as documented. SUBJECTIVE: OBJECTIVE: ASSESSMENT AND PLAN:
--- NOTE | 2019-10-03 16:46 | ECHO ---
Name: RICHELLEDEMIAN Exam:Adult Echocardiogram Study Date: 10/03/2019 02:42 PM Age: 59 yrs Reason For Study: LV DYSFUNCTION Height: 69 in Weight: 155 lb BSA: 1.9 m2 MMode/2D Measurements & Calculations IVSd: 1.1 cm Ao root diam: 3.0 cm LVIDd: 3.5 cm LA dimension: 2.8 cm LVIDs: 2.1 cm ACS: 1.9 cm LVPWd: 0.91 cm LVPWs: 0.80 cm EDV(Teich): 50.8 ml ESV(Teich): 14.4 ml LVOT diam: 2.0 cm LAV (MOD-bp): 45.0 ml RV S Owen: 10.7 cm/sec Doppler Measurements & Calculations MV V2 max: 115.4 cm/sec MV E max owen: 94.8 cm/sec MV max P.3 mmHg MV A max owen: 71.6 cm/sec MV V2 mean: 61.6 cm/sec MV E/A: 1.3 MV mean P.9 mmHg MV dec time: 0.22 sec MV V2 VTI: 32.5 cm Ao V2 max: 124.9 cm/sec LV V1 max P.7 mmHg Ao max P.2 mmHg LV V1 max: 96.6 cm/sec JUAN(V,D): 2.5 cm2 TR max owen: 182.6 cm/sec PA V2 max: 108.6 cm/sec TR max P.4 mmHg PA max P.7 mmHg Med Peak E' Owen: 7.5 cm/sec Med E/e': 12.6 Lat Peak E' Owen: 11.7 cm/sec Lat E/e': 8.1 Procedure A complete two-dimensional transthoracic echocardiogram was performed (2D, M-mode, Doppler and color flow Doppler). Left Ventricle The left ventricular size, thickness and function are normal. Ejection Fraction = 55-60%. The left ve ntricular wall motion is normal. Right Ventricle The right ventricle is normal in size and function. Atria Normal left and right atrial size and function. Mitral Valve There is no mitral regurgitation noted. Tricuspid Valve There is trace tricuspid regurgitation. There was insufficient TR detected to calculate RV systolic p ressure. Aortic Valve No hemodynamically significant valvular aortic stenosis. No aortic regurgitation is present. Pulmonic Valve There is no pulmonic valvular regurgitation. Great Vessels The aortic root is normal size. Pericardium/Pleura There is no pericardial effusion. Interpretation Summary The left ventricular size, thickness and function are normal The right ventricle is normal in size and function. There is trace tricuspid regurgitation. MD Marcus Acevedo 10/03/2019 04:46 PM
--- NOTE | 2019-10-03 17:24 | PN ---
Teaching Attending Note Name of Resident: Rosanna Garcia ATTENDING PHYSICIAN STATEMENT I saw and evaluated the patient. I reviewed the resident's note and discussed the case with the resident. I agree with the resident's findings and plan as documented. SUBJECTIVE: Patient is feeling better , no further chest pain, had mid-sternal chest pain with no radiation. OBJECTIVE: Vital Signs Temperature 98.2 F 10/03/19 14:30 Pulse Rate 74 10/03/19 14:30 Respiratory Rate 16 10/03/19 14:30 Blood Pressure 125/78 10/03/19 14:30 O2 Sat by Pulse Oximetry (%) 99 10/03/19 14:30 PE: per resident's note CBCD WBC 3.9 K/mm3 (4.0-10.0) L 10/03/19 12:12 RBC 4.57 M/mm3 (3.60-5.2) 10/03/19 12:12 Hgb 12.4 GM/dL (10.7-15.3) 10/03/19 12:12 Hct 39.6 % (32.4-45.2) 10/03/19 12:12 MCV 86.7 fl (80-96) 10/03/19 12:12 MCHC 31.4 g/dl (32.0-36.0) L 10/03/19 12:12 RDW 13.9 % (11.6-15.6) 10/03/19 12:12 Plt Count 217 K/MM3 (134-434) 10/03/19 12:12 MPV 9.0 fl (7.5-11.1) D 10/03/19 12:12 CMP Sodium 143 mmol/L (136-145) 10/03/19 05:13 Potassium 4.5 mmol/L (3.5-5.1) 10/03/19 05:13 Chloride 109 mmol/L (98-107) H 10/03/19 05:13 Carbon Dioxide 23 mmol/L (21-32) 10/03/19 05:13 Anion Gap 11 MMOL/L (8-16) 10/03/19 05:13 BUN 18.4 mg/dL (7-18) H 10/03/19 05:13 Creatinine 0.7 mg/dL (0.55-1.3) 10/03/19 05:13 Random Glucose 101 mg/dL (74-106) 10/03/19 05:13 Calcium 9.1 mg/dL (8.5-10.1) 10/03/19 05:13 Total Bilirubin 0.8 mg/dL (0.2-1) 10/03/19 05:13 AST 18 U/L (15-37) 10/03/19 05:13 ALT 23 U/L (13-61) 10/03/19 05:13 Alkaline Phosphatase 89 U/L (45-117) 10/03/19 05:13 Total Protein 7.1 g/dl (6.4-8.2) 10/03/19 05:13 Albumin 3.6 g/dl (3.4-5.0) 10/03/19 05:13 CARDIAC ENZYMES Creatine Kinase 183 U/L (26-192) 10/02/19 23:43 Troponin I < 0.02 ng/ml (0.00-0.05) 10/03/19 10:00 Current Medications Generic Name Dose Route Start Last Admin Trade Name Ele PRN Reason Stop Dose Admin Aspirin 81 mg 10/03/19 10:00 10/03/19 10:16 Ecotrin - PO 81 mg DAILY [facility] Administration Atorvastatin Calcium 20 mg 10/03/19 22:00 Lipitor - PO [facility] Home Medications Medication Instructions Recorded Aspirin Coated [Ecotrin -] 81 mg PO DAILY #90 tablet.ec 02/29/16 CXR: No acute pathology ECHO: Trace regurg ASSESSMENT AND PLAN: This patient is a 59yof with Pmhx of hypothyroidism, TIA (Father had CVA age 50) who presented with a sudden onset mid sternal chest pain that lasted for 1/2 hr. # Acute chest pain r/o ACS : Aspirin, lipitor follow trops, cardio consult dr nolasco appreciated , patient has family hx of CAD , ordered stress test for am . #Hyperlipidemia: on lipitor now #Hypothyroidism: continue home meds # Hx TIA continue ASA 81 daily # Pre-Diabetes: HbA1C 6.3, will discuss with patient and provide education before discharge DVT Prophylaxis: SCD's, lovenox sq
[2019-10-03] MEDS: ATORVASTATIN CA 20 MG TABLET (FP) PO SCH (21:53)
--- NOTE | 2019-10-04 08:44 | PN ---
Progress Note, Physician History of Present Illness: Ms Goldstein is a 59 yr old black woman (b. [place]) with PMHx HTN, ? DM, TIA; pt says she is on no medications, now admitted for sudden moderately severe left anterior chest wall and left breast pain (dull ache; later burning that did not go away after belching) that began when she was on the phone with her daughter; it lasted for at least 30 minutes. Pt walks 6-7 miles a day, 7 days a week, all year-round. She does not have chest pain or dyspnea with exertion. Father: CVA age 50; DM. - Current Medication List Current Medications: Active Medications Aspirin (Ecotrin -) 81 mg PO DAILY [facility] Last Admin: 10/03/19 10:16 Dose: 81 mg Documented by: Atorvastatin Calcium (Lipitor -) 20 mg PO HS [facility] Last Admin: 10/03/19 21:53 Dose: 20 mg Documented by: Enoxaparin Sodium (Lovenox -) 40 mg SQ DAILY [facility] - Objective Vital Signs: Vital Signs Temperature 98.2 F 10/04/19 05:00 Pulse Rate 61 10/04/19 05:00 Respiratory Rate 18 10/04/19 05:00 Blood Pressure 122/65 10/04/19 05:00 O2 Sat by Pulse Oximetry (%) 99 10/04/19 05:00 Eyes: Yes: WNL, Conjunctiva Clear, EOM Intact HENT: Yes: WNL, Atraumatic, Normocephalic Neck: Yes: WNL, Supple, Trachea Midline Cardiovascular: Yes: WNL, Regular Rate and Rhythm Respiratory: Yes: WNL, Regular, CTA Bilaterally Gastrointestinal: Yes: WNL, Normal Bowel Sounds Genitourinary: Yes: WNL Musculoskeletal: Yes: WNL Extremities: Yes: WNL Edema: No Integumentary: Yes: WNL Neurological: Yes: WNL, Alert, Oriented ...Motor Strength: WNL Psychiatric: Yes: WNL Labs: CBC, BMP 10/03/19 12:12 10/03/19 05:13 INR, PTT INR 0.83 (0.83-1.09) 10/02/19 23:43 Assessment/Plan Atypical chest pain On no medications Hx TIA post-menopausal Father: CVA age 50 Elevated BP in ER Elevated glucose--nonfasting Elevated LDL cholesterol Hx enlarged thyroid; needle biopsy done 2018: results? Plan: COVID pending; MIBI stress test today. Aggressive control of lipids (keep LDL cholesterol < 70 mg/dL). Serial BP checks. Serial EKGs; telemetry. HGBA1c. F/u prior neuro workup. F/u thyroid
[2019-10-04] MEDS: ENOXAPARIN NA (PORCINE) 40 MG/0.4 ML DISP.SYRIN SQ SCH (09:47)
[2019-10-04] MEDS: ASPIRIN COATED 81 MG TABLET.EC PO SCH (09:47)
[2019-10-04 11:15] LABS: HEMATOCRIT 40.9 % (32.4-45.2); HEMOGLOBIN 12.9 GM/dL (10.7-15.3); MCH 27.8 pg (25.7-33.7); MCHC 31.6 g/dl (32.0-36.0); MEAN CELL VOLUME 87.9 fl (80-96); MEAN PLT VOLUME 9.5 fl (7.5-11.1); PLATELET COUNT 179 K/MM3 (134-434); RBC 4.65 M/mm3 (3.60-5.2); RDW 14.1 % (11.6-15.6); WHITE BLOOD COUNT 3.6 K/mm3 (4.0-10.0)
[2019-10-04 11:38] LABS: BLOOD UREA NITROGEN 15.8 mg/dL (7-18); CALCIUM 9.6 mg/dL (8.5-10.1); CREATININE 0.7 mg/dL (0.55-1.3); MAGNESIUM 2.1 mg/dL (1.8-2.4); PHOSPHOROUS 3.8 mg/dL (2.5-4.9); POTASSIUM 4.3 mmol/L (3.5-5.1)
--- NOTE | 2019-10-04 12:58 | EKG ---
Test Reason : Blood Pressure : / mmHG Vent. Rate : 062 BPM Atrial Rate : 062 BPM P-R Int : 194 ms QRS Dur : 084 ms QT Int : 416 ms P-R-T Axes : 055 038 062 degrees QTc Int : 422 ms NORMAL SINUS RHYTHM EARLY REPOLARIZATION WHEN COMPARED WITH ECG OF 02-OCT-2019 22:00, NO SIGNIFICANT CHANGE WAS FOUND Confirmed by RUSTAM COLEMAN MD ([id number]) on 10/04/2019 12:57:53 PM Referred By: Confirmed By:RUSTAM COLEMAN MD
[2019-10-04 13:03] LABS: URINE APPEARANCE CLEAR; URINE BILIRUBIN NEGATIVE (NEGATIVE); URINE COLOR YELLOW; URINE GLUCOSE (UA) NEGATIVE (NEGATIVE); URINE KETONE NEGATIVE (NEGATIVE); URINE LEUK ESTERASE NEGATIVE (NEGATIVE); URINE NITRITE NEGATIVE (NEGATIVE); URINE PROTEIN NEGATIVE (NEGATIVE)
--- NOTE | 2019-10-04 14:45 | PN ---
Teaching Attending Note Name of Resident: Rosanna Garcia ATTENDING PHYSICIAN STATEMENT I saw and evaluated the patient. I reviewed the resident's note and discussed the case with the resident. I agree with the resident's findings and plan as documented. SUBJECTIVE: Patient is feeling better with no further chest pain. OBJECTIVE: Vital Signs Temperature 98.1 F 10/04/19 09:00 Pulse Rate 60 10/04/19 09:00 Respiratory Rate 20 10/04/19 09:00 Blood Pressure 132/70 10/04/19 09:00 O2 Sat by Pulse Oximetry (%) 98 10/04/19 09:00 PE:per resident's note CBCD WBC 3.6 K/mm3 (4.0-10.0) L 10/04/19 09:45 RBC 4.65 M/mm3 (3.60-5.2) 10/04/19 09:45 Hgb 12.9 GM/dL (10.7-15.3) 10/04/19 09:45 Hct 40.9 % (32.4-45.2) 10/04/19 09:45 MCV 87.9 fl (80-96) 10/04/19 09:45 MCHC 31.6 g/dl (32.0-36.0) L 10/04/19 09:45 RDW 14.1 % (11.6-15.6) 10/04/19 09:45 Plt Count 179 K/MM3 (134-434) 10/04/19 09:45 MPV 9.5 fl (7.5-11.1) 10/04/19 09:45 CMP Sodium 141 mmol/L (136-145) 10/04/19 09:45 Potassium 4.3 mmol/L (3.5-5.1) 10/04/19 09:45 Chloride 107 mmol/L (98-107) 10/04/19 09:45 Carbon Dioxide 26 mmol/L (21-32) 10/04/19 09:45 Anion Gap 8 MMOL/L (8-16) 10/04/19 09:45 BUN 15.8 mg/dL (7-18) 10/04/19 09:45 Creatinine 0.7 mg/dL (0.55-1.3) 10/04/19 09:45 Random Glucose 87 mg/dL (74-106) 10/04/19 09:45 Calcium 9.6 mg/dL (8.5-10.1) 10/04/19 09:45 Total Bilirubin 0.8 mg/dL (0.2-1) 10/03/19 05:13 AST 18 U/L (15-37) 10/03/19 05:13 ALT 23 U/L (13-61) 10/03/19 05:13 Alkaline Phosphatase 89 U/L (45-117) 10/03/19 05:13 Total Protein 7.1 g/dl (6.4-8.2) 10/03/19 05:13 Albumin 3.6 g/dl (3.4-5.0) 10/03/19 05:13 CARDIAC ENZYMES Creatine Kinase 183 U/L (26-192) 10/02/19 23:43 Troponin I < 0.02 ng/ml (0.00-0.05) 10/03/19 10:00 Current Medications Generic Name Dose Route Start Last Admin Trade Name Freq PRN Reason Stop Dose Admin Aspirin 81 mg 10/03/19 10:00 10/04/19 09:47 Ecotrin - PO 81 mg DAILY [facility] Administration Atorvastatin Calcium 20 mg 10/03/19 22:00 10/03/19 21:53 Lipitor - PO 20 mg HS [facility] Administration Enoxaparin Sodium 40 mg 10/04/19 10:00 10/04/19 09:47 Lovenox - SQ 40 mg DAILY [facility] Administration Home Medications Medication Instructions Recorded Aspirin Coated [Ecotrin -] 81 mg PO DAILY #90 tablet.ec 02/29/16 CXR: No acute pathology ECHO: Trace regurg ASSESSMENT AND PLAN: This patient is a 59yof with Pmhx of hypothyroidism, TIA (Father had CVA age 50) who presented with a sudden onset mid sternal chest pain that lasted for 1/2 hr. # Acute chest pain r/o ACS : 3 sets of trops are negative, Aspirin, lipitor continue, cardio consult dr nolasco appreciated , patient has family hx of CAD , s/p MIBI stress test as per environmental engineering aide. report noted. Follow up with environmental engineering aide within a week period for further care. #Hyperlipidemia: on lipitor now #Hypothyroidism: continue home meds # Hx TIA continue ASA 81 daily and lipitor continue # Pre-Diabetes: HbA1C 6.3, lifestyle modifications will be discussed with the patient. DVT Prophylaxis: SCD's, lovenox sq
--- NOTE | 2019-10-04 18:01 | PN ---
Physical Exam: SUBJECTIVE: Patient seen and examined bedside. In no acute distress. Denies and current chest pain or SOB. Said she had a fleeting moment of chest pain after dinner last night and when laying down, but it passed. OBJECTIVE: Vital Signs 10/04/19 15:23 Temperature 98.2 F Pulse Rate 72 Respiratory 20 Rate Blood Pressure 110/58 L O2 Sat by Pulse 98 Oximetry (%) GENERAL: The patient is awake, alert, and fully oriented, in no acute distress. HEAD: Normal with no signs of trauma. EYES: PERRL, extraocular movements intact, sclera anicteric, conjunctiva clear. No ptosis. ENT: moist mucous membranes. LUNGS: Breath sounds equal, clear to auscultation bilaterally HEART: Regular rate and rhythm, S1, S2 ABDOMEN: Soft, nontender, nondistended EXTREMITIES: pulses, warm, well-perfused, no edema. NEUROLOGICAL: Normal speech, gait not observed. SKIN: Warm, dry, normal turgor, no rashes or lesions noted Laboratory Results - last 24 hr 10/03/19 10/04/19 10/04/19 04:45 09:45 09:45 WBC 3.6 L RBC 4.65 Hgb 12.9 Hct 40.9 MCV 87.9 MCH 27.8 MCHC 31.6 L RDW 14.1 Plt Count 179 MPV 9.5 Sodium 141 Potassium 4.3 Chloride 107 Carbon Dioxide 26 Anion Gap 8 BUN 15.8 Creatinine 0.7 Est GFR (CKD-EPI)AfAm 110.69 Est GFR (CKD-EPI)NonAf 95.50 Random Glucose 87 Calcium 9.6 Phosphorus 3.8 Magnesium 2.1 Urine Color Urine Appearance Urine pH Ur Specific [place] Urine Protein Urine Glucose (UA) Urine Ketones Urine Blood Urine Nitrite Urine Bilirubin Urine Urobilinogen Ur Leukocyte Esterase COVID-19 ([facility]) Not detected 10/04/19 10:30 WBC RBC Hgb Hct MCV MCH MCHC RDW Plt Count MPV Sodium Potassium Chloride Carbon Dioxide Anion Gap BUN Creatinine Est GFR (CKD-EPI)AfAm Est GFR (CKD-EPI)NonAf Random Glucose Calcium Phosphorus Magnesium Urine Color Yellow Urine Appearance Clear Urine pH 6.0 Ur Specific [place] 1.016 Urine Protein Negative Urine Glucose (UA) Negative Urine Ketones Negative Urine Blood Negative Urine Nitrite Negative Urine Bilirubin Negative Urine Urobilinogen 1.0 Ur Leukocyte Esterase Negative COVID-19 ([facility]) Active Medications Generic Name Dose Route Start Last Admin Trade Name Ele PRN Reason Stop Dose Admin Aspirin 81 mg 10/03/19 10:00 10/04/19 09:47 Ecotrin - PO 81 mg DAILY [facility] Administration Atorvastatin Calcium 20 mg 10/03/19 22:00 10/03/19 21:53 Lipitor - PO 20 mg HS [facility] Administration Enoxaparin Sodium 40 mg 10/04/19 10:00 10/04/19 09:47 Lovenox - SQ 40 mg DAILY [facility] Administration ASSESSMENT/PLAN: 59 year old female with a past medical history significant for hypothyroidism, TIA (Father had CVA age 50) who presented with a sudden onset of on/off sternal chest pain which started around 9pm and lasted for about 1 hour and with no associated symptoms. She also has had increase SOB with climbing stairs over the last few weeks. She is being admitted to tele/obs for further cardiac evaluation and to rule out ACS. Chest Pain: 2/2 CVD vs ACS vs GERD - EKG NSR, 70 bpm, Qtc interval 436 m/s - continue ASA 81 - Cardiology consulted (Dr. Beckman) treadmill stress test: no diagnostic ischemic ST changes possible small area of anterioapical ischemia vs shifting breast attenuation must stay until monday to be transferred for diagnostic cardiac cath Aggressive control of lipids (keep LDL cholesterol < 70 mg/dL) ECHO: EF 55-60%, trace Tricuspid regurg - If symptoms consistent with GERD consider PPI Hyperlipidemia - atorvastatin 20 mg - goal LDL < 70 (LDL currently 103) - ASCVD score 1.5 - good LDL:HDL ratio Hypothyroidism - not on meds - TSH WNL Hx TIA - Continue ASA 81 daily Pre-Diabetes - HbA1C 6.3 - will discuss with patient and provide education before discharge DVT Prophylaxis - low risk - SCD's FEN - no IVF indicated - BMP daily - NPO after midnight for possible stress test Visit type - Emergency Visit Emergency Visit: Yes ED Registration Date: 10/03/19 Care time: The patient presented to the Emergency Department on the above date and was hospitalized for further evaluation of their emergent condition. - New Patient This patient is new to me today: No - Critical Care Critical Care patient: No - Discharge Referral Referred to [facility] Med P.C.: No ATTENDING PHYSICIAN STATEMENT I saw and evaluated the patient. I reviewed the resident's note and discussed the case with the resident. I agree with the resident's findings and plan as documented. SUBJECTIVE: OBJECTIVE: ASSESSMENT AND PLAN:
[2019-10-04] MEDS: ATORVASTATIN CA 20 MG TABLET (FP) PO SCH (21:04)
--- NOTE | 2019-10-05 09:25 | PN ---
Progress Note, Physician History of Present Illness: Ms Goldstein is a 59 yr old black woman (b. [place]) with PMHx HTN, ? DM, TIA; pt says she is on no medications, now admitted for sudden moderately severe left anterior chest wall and left breast pain (dull ache; later burning that did not go away after belching) that began when she was on the phone with her daughter; it lasted for at least 30 minutes. Pt walks 6-7 miles a day, 7 days a week, all year-round. She does not have chest pain or dyspnea with exertion. Father: CVA age 50; DM. - Current Medication List Current Medications: Active Medications Aspirin (Ecotrin -) 81 mg PO DAILY [facility] Last Admin: 10/04/19 09:47 Dose: 81 mg Documented by: Atorvastatin Calcium (Lipitor -) 20 mg PO HS [facility] Last Admin: 10/04/19 21:04 Dose: 20 mg Documented by: Enoxaparin Sodium (Lovenox -) 40 mg SQ DAILY [facility] Last Admin: 10/04/19 09:47 Dose: 40 mg Documented by: - Objective Vital Signs: Vital Signs Temperature 97.8 F 10/05/19 06:00 Pulse Rate 71 10/05/19 06:00 Respiratory Rate 20 10/05/19 06:00 Blood Pressure 116/68 10/05/19 06:00 O2 Sat by Pulse Oximetry (%) 99 10/04/19 22:00 Eyes: Yes: WNL, Conjunctiva Clear, EOM Intact HENT: Yes: WNL, Atraumatic, Normocephalic Neck: Yes: WNL, Supple, Trachea Midline Cardiovascular: Yes: WNL, Regular Rate and Rhythm Respiratory: Yes: WNL, Regular, CTA Bilaterally Gastrointestinal: Yes: WNL, Normal Bowel Sounds Genitourinary: Yes: WNL Musculoskeletal: Yes: WNL Extremities: Yes: WNL Edema: No Integumentary: Yes: WNL Neurological: Yes: WNL, Alert, Oriented ...Motor Strength: WNL Psychiatric: Yes: WNL Labs: CBC, BMP 10/04/19 09:45 10/04/19 09:45 INR, PTT INR 0.83 (0.83-1.09) 10/02/19 23:43 Assessment/Plan Angina On no medications Hx TIA post-menopausal Father: CVA age 50 Elevated BP in ER Elevated glucose--nonfasting Elevated LDL cholesterol Hx enlarged thyroid; needle biopsy done 2018: results? Plan: COVID negative MIBI stress test positive for mild anterior wall ischemia. Discussed treatment optionts at [facility]. Will Transfer for c. cath to [facility] tomorrow. Aggressive control of lipids (keep LDL cholesterol < 70 mg/dL). Add Metoprolol 12.5 QD
[2019-10-05] MEDS: metoPROLOL SUCCINATE 25 MG TAB.SR.24H (FP) PO SCH (10:54)
[2019-10-05] MEDS: ENOXAPARIN NA (PORCINE) 40 MG/0.4 ML DISP.SYRIN SQ SCH (10:54)
[2019-10-05] MEDS: ASPIRIN COATED 81 MG TABLET.EC PO SCH (10:54)
--- NOTE | 2019-10-05 15:25 | PN ---
Progress Note (short form) - Note Progress Note: Patient is comfortable with no acute distress. no further chest pain. Vital Signs Temperature 98.4 F 10/05/19 09:00 Pulse Rate 69 10/05/19 09:00 Respiratory Rate 20 10/05/19 09:00 Blood Pressure 124/63 10/05/19 09:00 O2 Sat by Pulse Oximetry (%) 100 10/05/19 09:00 GENERAL: The patient is awake, alert, and fully oriented, in no acute distress. HEAD: Normal with no signs of trauma. EYES: PERRL, extraocular movements intact, sclera anicteric, conjunctiva clear. ENT: Ears normal, oropharynx clear without exudates, moist mucous membranes. NECK: Trachea midline, full range of motion, supple. LUNGS: Breath sounds equal, clear to auscultation bilaterally, no wheezes, no crackles, no accessory muscle use. HEART: Regular rate and rhythm, S1, S2 without murmur, rub or gallop. ABDOMEN: Soft, nontender, nondistended, normoactive bowel sounds, no guarding, no rebound, no hepatosplenomegaly, no masses. EXTREMITIES: 2+ pulses, warm, well-perfused, no edema. NEUROLOGICAL: Cranial nerves II through XII grossly intact. Normal speech, gait not observed. PSYCH: Normal mood, normal affect. SKIN: Warm, dry, normal turgor, no rashes or lesions noted CBCD WBC 3.6 K/mm3 (4.0-10.0) L 10/04/19 09:45 RBC 4.65 M/mm3 (3.60-5.2) 10/04/19 09:45 Hgb 12.9 GM/dL (10.7-15.3) 10/04/19 09:45 Hct 40.9 % (32.4-45.2) 10/04/19 09:45 MCV 87.9 fl (80-96) 10/04/19 09:45 MCHC 31.6 g/dl (32.0-36.0) L 10/04/19 09:45 RDW 14.1 % (11.6-15.6) 10/04/19 09:45 Plt Count 179 K/MM3 (134-434) 10/04/19 09:45 MPV 9.5 fl (7.5-11.1) 10/04/19 09:45 CMP Sodium 141 mmol/L (136-145) 10/04/19 09:45 Potassium 4.3 mmol/L (3.5-5.1) 10/04/19 09:45 Chloride 107 mmol/L (98-107) 10/04/19 09:45 Carbon Dioxide 26 mmol/L (21-32) 10/04/19 09:45 Anion Gap 8 MMOL/L (8-16) 10/04/19 09:45 BUN 15.8 mg/dL (7-18) 10/04/19 09:45 Creatinine 0.7 mg/dL (0.55-1.3) 10/04/19 09:45 Random Glucose 87 mg/dL (74-106) 10/04/19 09:45 Calcium 9.6 mg/dL (8.5-10.1) 10/04/19 09:45 Total Bilirubin 0.8 mg/dL (0.2-1) 10/03/19 05:13 AST 18 U/L (15-37) 10/03/19 05:13 ALT 23 U/L (13-61) 10/03/19 05:13 Alkaline Phosphatase 89 U/L (45-117) 10/03/19 05:13 Total Protein 7.1 g/dl (6.4-8.2) 10/03/19 05:13 Albumin 3.6 g/dl (3.4-5.0) 10/03/19 05:13 CARDIAC ENZYMES Creatine Kinase 183 U/L (26-192) 10/02/19 23:43 Troponin I < 0.02 ng/ml (0.00-0.05) 10/03/19 10:00 Current Medications Generic Name Dose Route Start Last Admin Trade Name Freq PRN Reason Stop Dose Admin Aspirin 81 mg 10/03/19 10:00 10/05/19 10:54 Ecotrin - PO 81 mg DAILY LAINEY Administration Atorvastatin Calcium 20 mg 10/03/19 22:00 10/04/19 21:04 Lipitor - PO 20 mg HS LAINEY Administration Enoxaparin Sodium 40 mg 10/04/19 10:00 10/05/19 10:54 Lovenox - SQ 40 mg DAILY LAINEY Administration Metoprolol Succinate 12.5 mg 10/05/19 10:00 10/05/19 10:54 Toprol Xl - PO 12.5 mg DAILY LAINEY Administration Home Medications Medication Instructions Recorded Aspirin Coated [Ecotrin -] 81 mg PO DAILY #90 tablet.ec 02/29/16 CXR: No acute pathology ECHO: Trace regurg ASSESSMENT AND PLAN: This patient is a 59yof with Pmhx of hypothyroidism, TIA (Father had CVA age 50) who presented with a sudden onset mid sternal chest pain that lasted for 1/2 hr. # Acute chest pain : Mibi stress test; positive mild anterior ischemia. with 3 sets of trops are negative, Aspirin, lipitor continue, cardio consult dr nolasco appreciated , patient will be transferred to [facility] in am for further care. #Hyperlipidemia: on lipitor now #Hypothyroidism: continue home meds # Hx TIA continue ASA 81 daily and lipitor continue # Pre-Diabetes: HbA1C 6.3, lifestyle modifications will be discussed with the patient. DVT Prophylaxis: SCD's, lovenox sq will be transferred to [place] [facility] for cath in am by Dr. Julio Visit type - Emergency Visit Emergency Visit: Yes ED Registration Date: 10/03/19 Care time: The patient presented to the Emergency Department on the above date and was hospitalized for further evaluation of their emergent condition. - New Patient This patient is new to me today: No - Critical Care Critical Care patient: No - Discharge Referral Referred to [facility] Med P.C.: No
[2019-10-05] MEDS: ATORVASTATIN CA 20 MG TABLET (FP) PO SCH (21:18)
--- NOTE | 2019-10-06 10:17 | PN ---
Teaching Attending Note Name of Resident: Faheem Baugh ATTENDING PHYSICIAN STATEMENT I saw and evaluated the patient. I reviewed the resident's note and discussed the case with the resident. I agree with the resident's findings and plan as documented. SUBJECTIVE: Patient is comfortable with no acute distress. OBJECTIVE: Vital Signs Temperature 97.7 F 10/06/19 05:00 Pulse Rate 62 10/06/19 05:00 Respiratory Rate 18 10/06/19 05:00 Blood Pressure 106/63 10/06/19 05:00 O2 Sat by Pulse Oximetry (%) 100 10/05/19 21:00 PE:per resident's note CBCD WBC 3.6 K/mm3 (4.0-10.0) L 10/04/19 09:45 RBC 4.65 M/mm3 (3.60-5.2) 10/04/19 09:45 Hgb 12.9 GM/dL (10.7-15.3) 10/04/19 09:45 Hct 40.9 % (32.4-45.2) 10/04/19 09:45 MCV 87.9 fl (80-96) 10/04/19 09:45 MCHC 31.6 g/dl (32.0-36.0) L 10/04/19 09:45 RDW 14.1 % (11.6-15.6) 10/04/19 09:45 Plt Count 179 K/MM3 (134-434) 10/04/19 09:45 MPV 9.5 fl (7.5-11.1) 10/04/19 09:45 CMP Sodium 141 mmol/L (136-145) 10/04/19 09:45 Potassium 4.3 mmol/L (3.5-5.1) 10/04/19 09:45 Chloride 107 mmol/L (98-107) 10/04/19 09:45 Carbon Dioxide 26 mmol/L (21-32) 10/04/19 09:45 Anion Gap 8 MMOL/L (8-16) 10/04/19 09:45 BUN 15.8 mg/dL (7-18) 10/04/19 09:45 Creatinine 0.7 mg/dL (0.55-1.3) 10/04/19 09:45 Random Glucose 87 mg/dL (74-106) 10/04/19 09:45 Calcium 9.6 mg/dL (8.5-10.1) 10/04/19 09:45 Total Bilirubin 0.8 mg/dL (0.2-1) 10/03/19 05:13 AST 18 U/L (15-37) 10/03/19 05:13 ALT 23 U/L (13-61) 10/03/19 05:13 Alkaline Phosphatase 89 U/L (45-117) 10/03/19 05:13 Total Protein 7.1 g/dl (6.4-8.2) 10/03/19 05:13 Albumin 3.6 g/dl (3.4-5.0) 10/03/19 05:13 CARDIAC ENZYMES Creatine Kinase 183 U/L (26-192) 10/02/19 23:43 Troponin I < 0.02 ng/ml (0.00-0.05) 10/03/19 10:00 Current Medications Generic Name Dose Route Start Last Admin Trade Name Ele PRN Reason Stop Dose Admin Aspirin 81 mg 10/03/19 10:00 10/05/19 10:54 Ecotrin - PO 81 mg DAILY LAINEY Administration Atorvastatin Calcium 20 mg 10/03/19 22:00 10/05/19 21:18 Lipitor - PO 20 mg HS LAINEY Administration Enoxaparin Sodium 40 mg 10/04/19 10:00 10/05/19 10:54 Lovenox - SQ 40 mg DAILY LAINEY Administration Metoprolol Succinate 12.5 mg 10/05/19 10:00 10/05/19 10:54 Toprol Xl - PO 12.5 mg DAILY LAINEY Administration Home Medications Medication Instructions Recorded Aspirin Coated [Ecotrin -] 81 mg PO DAILY #90 tablet.ec 02/29/16 CXR: No acute pathology ECHO: Trace regurg ASSESSMENT AND PLAN: This patient is a 59yof with Pmhx of hypothyroidism, TIA (Father had CVA age 50) who presented with a sudden onset mid sternal chest pain that lasted for 1/2 hr. # Acute chest pain : Mibi stress test; positive mild anterior ischemia. with 3 sets of trops are negative, Aspirin, lipitor continue, cardio consult dr nolasco appreciated , patient will be transferred to [facility] when bed is available , hopefully today or in am for further care. #Hyperlipidemia: on lipitor now #Hypothyroidism: continue home meds # Hx TIA continue ASA 81 daily and lipitor continue # Pre-Diabetes: HbA1C 6.3, lifestyle modifications will be discussed with the patient. DVT Prophylaxis: SCD's, lovenox sq will be transferred to [facility] for cath by Dr. Julio
[2019-10-06] MEDS: ASPIRIN COATED 81 MG TABLET.EC PO SCH (10:53)
[2019-10-06] MEDS: metoPROLOL SUCCINATE 25 MG TAB.SR.24H (FP) PO SCH (10:53)
[2019-10-06] MEDS: ENOXAPARIN NA (PORCINE) 40 MG/0.4 ML DISP.SYRIN SQ SCH (10:53)
--- NOTE | 2019-10-06 15:03 | PN ---
Progress Note, Physician History of Present Illness: Ms Goldstein is a 59 yr old black woman (b. [place]) with PMHx HTN, ? DM, TIA; pt says she is on no medications, now admitted for sudden moderately severe left anterior chest wall and left breast pain (dull ache; later burning that did not go away after belching) that began when she was on the phone with her daughter; it lasted for at least 30 minutes. Pt walks 6-7 miles a day, 7 days a week, all year-round. She does not have chest pain or dyspnea with exertion. Father: CVA age 50; DM. - Current Medication List Current Medications: Active Medications Aspirin (Ecotrin -) 81 mg PO DAILY COUNTS INCLUDE 234 BEDS AT THE [facility] Last Admin: 10/06/19 10:53 Dose: 81 mg Documented by: Atorvastatin Calcium (Lipitor -) 20 mg PO HS COUNTS INCLUDE 234 BEDS AT THE [facility] Last Admin: 10/05/19 21:18 Dose: 20 mg Documented by: Enoxaparin Sodium (Lovenox -) 40 mg SQ DAILY COUNTS INCLUDE 234 BEDS AT THE [facility] Last Admin: 10/06/19 10:53 Dose: 40 mg Documented by: Metoprolol Succinate (Toprol Xl -) 12.5 mg PO DAILY COUNTS INCLUDE 234 BEDS AT THE [facility] Last Admin: 10/06/19 10:53 Dose: 12.5 mg Documented by: - Objective Vital Signs: Vital Signs Temperature 97.8 F 10/06/19 10:00 Pulse Rate 62 10/06/19 10:00 Respiratory Rate 18 10/06/19 10:00 Blood Pressure 135/98 10/06/19 10:00 O2 Sat by Pulse Oximetry (%) 99 10/06/19 10:00 Eyes: Yes: WNL, Conjunctiva Clear, EOM Intact HENT: Yes: WNL, Atraumatic, Normocephalic Neck: Yes: WNL, Supple, Trachea Midline Cardiovascular: Yes: WNL, Regular Rate and Rhythm Respiratory: Yes: WNL, Regular, CTA Bilaterally Gastrointestinal: Yes: WNL, Normal Bowel Sounds Genitourinary: Yes: WNL Musculoskeletal: Yes: WNL Extremities: Yes: WNL Edema: No Integumentary: Yes: WNL Neurological: Yes: WNL, Alert, Oriented ...Motor Strength: WNL Psychiatric: Yes: WNL Labs: CBC, BMP 10/04/19 09:45 10/04/19 09:45 INR, PTT INR 0.83 (0.83-1.09) 10/02/19 23:43 Assessment/Plan Angina On no medications Hx TIA post-menopausal Father: CVA age 50 Elevated BP in ER Elevated glucose--nonfasting Elevated LDL cholesterol Hx enlarged thyroid; needle biopsy done 2018: results? Plan: COVID negative MIBI stress test positive for mild anterior wall ischemia. Discussed treatment optionts at [facility]. Will Transfer for c. cath to [facility] tomorrow. Aggressive control of lipids (keep LDL cholesterol < 70 mg/dL). Add Metoprolol 12.5 QD
--- NOTE | 2019-10-06 17:54 | PN ---
Physical Exam: SUBJECTIVE: Patient seen and examined at the bedside, no chest pain overnight, in no acute distress. OBJECTIVE: Vital Signs Period Temp Pulse Resp BP Sys/Calderon Pulse Ox Last 24 Hr 97.7 F-98.3 F 62-83 18-20 102-138/63-98 99-100 GENERAL: AOx3 HEAD: Normal with no signs of trauma. EYES: PERRL, extraocular movements intact, sclera anicteric, conjunctiva clear. No ptosis. ENT: moist mucous membranes. LUNGS: Breath sounds equal, clear to auscultation bilaterally HEART: Regular rate and rhythm, S1, S2 ABDOMEN: Soft, nontender, nondistended EXTREMITIES: pulses, warm, well-perfused, no edema. NEUROLOGICAL: Normal speech, gait not observed. SKIN: Warm, dry, normal turgor, no rashes or lesions noted Active Medications Generic Name Dose Route Start Last Admin Trade Name Freq PRN Reason Stop Dose Admin Aspirin 81 mg 10/03/19 10:00 10/06/19 10:53 Ecotrin - PO 81 mg DAILY LAINEY Administration Atorvastatin Calcium 20 mg 10/03/19 22:00 10/05/19 21:18 Lipitor - PO 20 mg HS LAINEY Administration Enoxaparin Sodium 40 mg 10/04/19 10:00 10/06/19 10:53 Lovenox - SQ 40 mg DAILY LAINEY Administration Metoprolol Succinate 12.5 mg 10/05/19 10:00 10/06/19 10:53 Toprol Xl - PO 12.5 mg DAILY LAINEY Administration ASSESSMENT/PLAN: 59 year old female with PMH of hypothyroidism, TIA, who presented with chest pain and SOB, was found to have positive mild anterior ischemia on MIBI stress test, pending transfer to [place] for further management. #Mild anterior ischemia - ASA 81, Toprol 12.5mg - Cardio on board - MIBI stress test: anterioapical ischemia vs shifting breast attenuation - Echo: EF 55-60%, trace Tricuspid regurg - Pending transfer to [place] tomorrow #HLD - LDL 103 - Atorvastatin 20 mg #Hx of Hypothyroidism - TSH normal, not currently on any medication - Out patient follow-up # Hx TIA - Continue ASA 81 daily #Pre-Diabetes - HbA1C 6.3 - Pt education and outpatient follow-up #FEN - Cholesterol/DM diet #Prophylaxis - Lovenox #Dispo - Transfer to [place] tomorrow Visit type - Emergency Visit Emergency Visit: Yes ED Registration Date: 10/03/19 Care time: The patient presented to the Emergency Department on the above date and was hospitalized for further evaluation of their emergent condition. - New Patient This patient is new to me today: No - Critical Care Critical Care patient: No ATTENDING PHYSICIAN STATEMENT I saw and evaluated the patient. I reviewed the resident's note and discussed the case with the resident. I agree with the resident's findings and plan as documented. SUBJECTIVE: OBJECTIVE: ASSESSMENT AND PLAN:
[2019-10-06] MEDS: ATORVASTATIN CA 20 MG TABLET (FP) PO SCH (20:20)
[2019-10-06 20:22] VITALS: BP 95/66; PULSE 63; TEMP 97.8
== END 2019-10-06 21:14 | disposition short-term general hospital (02) ==
LOC: JER 21:57 → JERBED 10-03 01:56 → J4W 10-03 16:43
PROVIDERS: ADMIT Internal Medicine; ATTEND Internal Medicine
PROC: 3E023GC Introduction of Other Therapeutic Substance into Muscle, Percutaneous Approach (ICD-10-PCS; principal; 2019-10-03)
DX: Z29.9 Encounter for prophylactic measures, unspecified (principal); E03.9 Hypothyroidism, unspecified; Z86.73 Personal history of transient ischemic attack (TIA), and cerebral infarction without residual deficits; Z82.3 Family history of stroke; E78.5 Hyperlipidemia, unspecified; R73.03 Prediabetes; I99.8 Other disorder of circulatory system; I10 Essential (primary) hypertension; J45.909 Unspecified asthma, uncomplicated
CPT/HCPCS: 36415; 71046-TC-FY; 78452-TC; 80048; 80053; 80061; 81003; 82550; 82553; 83036; 83721; 83735; 84100; 84443; 84484; 85025; 85027; 85379; 85610; 85730; 93005; 93010; 93017; 93306-TC; 99285-25; A9502; G0378; U0003